=== PATIENT | male | born 1970 | race African-American/Black ===

== ENCOUNTER 2016-11-24 03:27 | Emergency (ER) | payer SELFPAY ==
[~2016-11-24] VITALS: Ht 175.3 cm; Wt 88.5 kg
[2016-11-24 03:45] VITALS: BP_SYST 132
== END 2016-11-24 09:39 | disposition left against medical advice (07) ==
LOC: ER 03:31
DX: R51 Headache (principal); Z53.21 Procedure and treatment not carried out due to patient leaving prior to being seen by health care provider; V49.3XXA Car occupant (driver) (passenger) injured in unspecified nontraffic accident, initial encounter; Y93.89 Activity, other specified; Y99.8 Other external cause status; Y92.89 Other specified places as the place of occurrence of the external cause